=== PATIENT | female | born 1955 | race Caucasian/White ===

== ENCOUNTER 2021-11-19 05:58 | Observation (INO) ==
--- NOTE | 2021-11-13 09:38 | Anesthesiology Consultation ---
Date of Service November 13, 2021 Assessment & Plan (1) Encounter for pre-operative examination: Chart Review Chart Review: Acceptable Risk for Surgery (pending preop Covid testing results and DOS labs ) and Patient NOT seen in Pre Admission Testing -Will need updated labs- will order CBC with diff and PRP stat AM of surgery Per nursing assessment 11/12/2021, patient denies any recent travel. No known Covid infection in the past 90 days. Patient is fully vaccinated for Covid. No known Covid positive exposures or Covid related symptoms. Preop Covid testing scheduled 11/17/2021 = will await results. Pt seen by PCP 10/08/21= patient seen for preop exam for cervical surgery. Labs reviewed. Cleared for cervical spine surgery by Dr. Manning as long as EKG is within normal limits. Mild to moderate risk for surgery. (Preop EKG showed no issues) History Surgery Operation Date: 11/19/21 09:20 Proposed Procedures p C6-C7 Anterior Cervical Discectomy and Fusion - Gabriel Manning, Height/Weight Height: 5 ft Weight: 70.76 kg Allergies Allergy/AdvReac Type Severity Reaction Status Date / Time No Known Allergies Allergy Verified 11/12/21 15:01 Medications Home Medications Medication Instructions Recorded Confirmed Last Taken Cholesterol Medication 1 dose PO HS 11/12/21 11/12/21 Unknown acetaminophen 325 mg tablet 325 mg PO QID PRN 11/12/21 11/12/21 Unknown (Tylenol) cholecalciferol (vitamin D3) 25 25 mcg PO QAM 11/12/21 11/12/21 Unknown mcg (1,000 unit) capsule (Vitamin D3) cyanocobalamin (vitamin B-12) 1 tab PO QAM 11/12/21 11/12/21 Unknown gabapentin 100 mg capsule 100 mg PO HS PRN 11/12/21 11/12/21 Unknown Past Medical History Medical History (Updated 11/13/21 @ 09:58 by Kiara Mcgee PA-C) Cardiac murmur No previous echo No murmur noted on PCP exam 10/08/21 Cervical disc herniation HLD (hyperlipidemia) Past Family History Family History Other No family history of adverse response to anesthesia Past Surgical History Surgical History History of appendectomy History of colonoscopy History of shoulder surgery Rt History of wisdom tooth extraction STOP BANG Total 1 Social History Smoking Status: Never smoker Do You Dip or Chew Tobacco: No Hx Alcohol Use: Yes alcohol intake frequency: holidays/special occasions only Hx Substance Use: No substance use type: does not use Testing Laboratory Results Preop labs 09/14/21 (will be >60 days old)= WBC: 7/74 H/H: 13.0/39.7 PLATELETS: 219 SODIUM: 139 POTASSIUM: 4.3 CHLORIDE: 106 CO2: 28 BUN: 19 CREATININE: 0.77 GLUCOSE: 88 PT: 9.7 PTT: 24.1 INR: 1.0 UA: Negative URINE CULTURE: Group B Beta Strep, Gamma strep not enterococcus Electrocardiogram Date: 09/14/21 Findings: + NSR @ (73bpm ) Normal EKG per cardio. Chest X-Ray Date: 09/14/21 Findings: + NAD
[2021-11-19] MEDS ORDERED: ceFAZolin 1000MG 1,000 MG/7.5 ML SYR IV SCH (06:00)
[2021-11-19] MEDS ORDERED: GABAPENTIN 300 MG CAP PO SCH (06:00)
[2021-11-19] MEDS ORDERED: CeleBREX 200 MG CAP PO SCH (06:00)
[2021-11-19] MEDS ORDERED: LR 15ML/HR IV SCH (06:00)
[2021-11-19] MEDS ORDERED: ACETAMINOPHEN 500 MG TAB PO SCH (06:00)
[2021-11-19] MEDS ORDERED: EPINEPHrine INJ 1 MG/ML AMP ONE (06:59)
[2021-11-19] MEDS ORDERED: BUPIVACAINE 0.5 % 5 MG/1 ML MPF 30ML VIAL ONE (06:59)
[2021-11-19] MEDS ORDERED: ceFAZolin 330 MG/ML 1 GM VIAL ONE (07:00)
[2021-11-19] MEDS ORDERED: PROPOFOL IV EMULSION 10 MG/ML 20 ML VIAL IV ONE (07:03)
[2021-11-19] MEDS ORDERED: ONDANSETRON INJ 2 MG/ML 2 ML VIAL ONE (07:03)
[2021-11-19] MEDS ORDERED: NEOSTIGMINE METHYLSULFATE 1 MG/ML 10ML VIAL ONE (07:03)
[2021-11-19] MEDS ORDERED: LIDOCAINE 2% 2 ML VIAL/AMP(20MG/ML) INFIL ONE (07:03)
[2021-11-19] MEDS ORDERED: DEXAMETHASONE SOD INJ 4 MG/ML VIAL ONE (07:03)
[2021-11-19] MEDS ORDERED: GLYCOPYRROLATE 0.2 MG/ML VIAL ONE (07:03)
[2021-11-19] MEDS ORDERED: fentaNYL citrate 100 MCG/2 ML VIAL ONE (07:04)
[2021-11-19] MEDS ORDERED: MIDAZOLAM HCL 1 MG/ML 2ML VIAL ONE (07:04)
[2021-11-19] MEDS ORDERED: SUGAMMADEX SODIUM 200 MG/2 ML VIAL IV ONE (07:07)
[2021-11-19] MEDS ORDERED: ePHEDrine sulfate 50 MG/ML AMP IV PRN (07:20)
[2021-11-19] MEDS ORDERED: ONDANSETRON INJ 2 MG/ML 2 ML VIAL IV PRN ×2 (07:20→12:59)
[2021-11-19] MEDS ORDERED: ATROPINE SULFATE 0.1 MG/ML 10ML SYR IV PRN (07:20)
[2021-11-19] MEDS ORDERED: fentaNYL citrate 100 MCG/2 ML VIAL IV PRN (07:20)
[2021-11-19 07:24] LABS: Basophils # (auto) 0.02 K/uL (0-0.2); Basophils % (auto) 0.3 %; Eosinophils # (auto) 0.09 K/uL (0-0.5); Eosinophils % (auto) 1.5 %; Hematocrit (blood only) 38.4 % (37-47); Hemoglobin 12.6 g/dL (12.0-16.0); Immature Granulocytes # (auto) 0.01 K/uL (0.00-0.02); Immature Granulocytes % (auto) 0.2 %; Lymphocytes # (auto) 1.83 K/uL (1.2-3.4); Lymphocytes % (auto) 31.2 %; Mean Corpuscular Hemoglobin 31.4 pg (25-34); Mean Corpuscular Volume 95.8 fL (80-100); Mean Platelet Volume 10.5 fL (7.4-10.4); Monocytes # (auto) 0.64 K/uL (0.11-0.59); Monocytes % (auto) 10.9 %; Neutrophils # (auto) 3.27 K/uL (1.4-6.5); Neutrophils % (auto) 55.9 %; Platelet Count 218 K/uL (130-400); RDW Coefficient of Variation 12.5 % (11.5-14.5); RDW Standard Deviation 43.5 fL (36.4-46.3); Red Blood Count 4.01 M/uL (4.2-5.4); White Blood Count 5.86 K/uL (4.8-10.8)
[2021-11-19 07:28] LABS: Mean Corpuscular Hgb Conc 32.8 g/dL (32-36)
--- NOTE | 2021-11-19 07:38 | History & Physical Bridge Note ---
Date of Service November 19, 2021 History & Physical Bridge Note I have examined the patient, reviewed the History & Physical and in the interval since the performance of the History & Physical I have noted the following changes of clinical significance: no changes noted
--- NOTE | 2021-11-19 07:39 | History & Physical Report ---
Date of Service November 19, 2021 Assessment & Plan (1) Herniation of cervical intervertebral disc with radiculopathy: Plan: C6-C7 anterior cervical discectomy and fusion History of Present Illness Chief Complaint: Neck and arm pain Primary Care Provider: NENA Aguilar This is a 65-year-old female presents with chronic persistent neck and arm pain. Failing course of nonoperative care she is here for surgical invention. Allergies Allergy/AdvReac Type Severity Reaction Status Date / Time No Known Allergies Allergy Verified 11/19/21 06:22 Home Medications Medication Instructions Recorded Confirmed Type Cholesterol Medication 1 dose PO HS 11/12/21 11/19/21 History acetaminophen 325 mg tablet 325 mg PO QID PRN 11/12/21 11/19/21 History (Tylenol) cholecalciferol (vitamin D3) 25 25 mcg PO QAM 11/12/21 11/19/21 History mcg (1,000 unit) capsule (Vitamin D3) cyanocobalamin (vitamin B-12) 1 tab PO QAM 11/12/21 11/19/21 History gabapentin 100 mg capsule 100 mg PO HS PRN 11/12/21 11/19/21 History Past Med/Surg History Medical History (Updated 11/19/21 @ 07:39 by Gabriel Manning DO) Cardiac murmur No previous echo No murmur noted on PCP exam 10/08/21 Cervical disc herniation HLD (hyperlipidemia) Surgical History History of appendectomy History of colonoscopy History of shoulder surgery Rt History of wisdom tooth extraction Family History Other No family history of adverse response to anesthesia Social History Smoking Status: Never smoker Second Hand Exposure: No; Do You Dip or Chew Tobacco: No; Hx Alcohol Use: Yes Hx Substance Use: No Preferred Language: Dutch Communication Ability: Effective Systems Architect Required: No Beliefs That Will Affect Care: None Current Living Situation: Spouse Feels Safe at Home: Yes Safety Concerns: Feels Safe At This Time Assistive Devices: Denture - Upper and Glasses Assistive Devices Comment: upper partial Physical Exam Physical Exam: Patient is alert and oriented Heart regular in rhythm Lungs clear Results & Data ([facility]) Vital Signs (Past 12 Hours) Vital Signs Temp Pulse Resp BP Pulse Ox 11/19/21 06:48 36.7 C 89 18 168/88 H 98
[2021-11-19 07:52] LABS: BUN Creatinine Ratio 26.3 (10-20); Calcium 9.5 mg/dl (8.5-10.1); Creatinine Clr Calc Pharmacy 66.2 ml/min; Est GFR (African American) 94.7 ml/min; Est GFR (Non-African American) 81.7 ml/min; Potassium 4.5 mmol/L (3.5-5.1)
[2021-11-19] MEDS ORDERED: HYDROmorphone INJ 2 MG/ML SYR/VIAL ONE (08:07)
[2021-11-19] MEDS ORDERED: FLOSEAL HEMOSTATIC MATRIX 10ML TOP ONE (08:34)
[2021-11-19] MEDS ORDERED: ROCURONIUM BROMIDE 10 MG/ML 5 ML VIAL IV ONE (08:45)
--- NOTE | 2021-11-19 08:57 | Operative Report ---
Post Operative Report Pre & Post Diagnosis Operation Date: 11/19/21 07:45 Pre-Op Diagnosis: Spinal Stenosis, Cervical Region C6-C7 Post-Op Diagnosis: Spinal Stenosis, Cervical Region C6-C7 I identified the patient and participated in the time-out.: Yes Procedure Operation Date: 11/19/21 07:45 Actual Procedures #1 anterior cervical discectomy with bilateral foraminotomies C6-C7. #2 anterior cervical arthrodesis C6-C7. #3 placement of 8 mm spiral cage filled with I factor C6-C7. #4 application of arcos plate and screws across C6-C7. Surgeon Gabriel Manning, Software Quality Manager Tomasa Agosto Estimated Blood Loss 20 Findings Consistent with Post-Op Diagnosis Specimens None Indications This is a 65-year-old female who presents above-mentioned diagnosis after failing course of nonoperative care she is here for the above-mentioned procedure. Description of Procedure Patient met with identified informed consent obtained. Patient was then taken to the operative suite underwent ablation placed in the supine position injectable head Jacques head kiln operator. All bony prominences well-padded eyes inspected to ensure no external pressure placed upon the. This point the anterior cervical spine was prepped and draped in normal sterile fashion. With the assistance of fluoroscopy identified the C6-C7 disc base and a transverse incision was placed overlying this region. Blunt dissection with the assistance of bipolar electrocautery was performed down to and exposing the anterior c ervical spine at C6-C7. Self-retaining retractors placed. Complete discectomy of C6-7 is then performed out to the uncovertebral's bilaterally. [place] distracting pins utilized to assist in visualization. Removed all posterior annular fibers longitudinal ligament bilateral foraminotomies performed. Endplates were then burred to subcortical bleeding bone and a 8 mm spiral cage filled with I factor tapped in position. Distracting apparatus was removed and a 5 complete screws applied with the assistance of fluoroscopy. The incision was then copiously irrigated explored to ensure no damage to surrounding structures remaining bleeding. 10 round ANGÉLICA drain inserted. The incision was then closed with 2 Vicryl in a fashion of 4 Monocryl for final skin closure. Steri-Strip sterile dressings placed. Patient will continue to PACU stable condition. Please note Tomasa Agosto was present at the entire procedure involved the patient positioning complex portions of the surgery and final skin closure. Lastly spinal cord monitoring was utilized at the procedure no changes noted. I attest to the content of the Intraoperative Record and any orders documented therein. Any exceptions are noted below.
--- NOTE | 2021-11-19 09:21 | Fluoroscopy Report ---
FL cervical 2-3V CLINICAL HISTORY: C6-7 ACDF COMPARISON STUDY: None. FLUOROSCOPY TIME: 13.6 seconds. FLUOROSCOPIC IMAGES: 3 FINDINGS: Fluoroscopy was provided during C6-C7 anterior cervical discectomy and fusion. Hardware svetlana ears intact. Surgical drain is noted. Endotracheal tube is partially imaged. IMPRESSION: Fluoroscopy provided during C6-C7 anterior discectomy and fusion. ACT 112: Negative or not required by law. Electronically signed by: Joe Rebolledo M.D. 11/19/2021 9:20 AM
--- NOTE | 2021-11-19 10:12 | Anesthesiology Progress Note ---
Date of Service November 19, 2021 Anesthesia Post Procedure Vital Signs Vital Signs: Temp Pulse Pulse Resp BP Pulse Ox 11/19/21 10:00 70 14 146/94 H 98 11/19/21 09:50 72 11 L 143/94 H 96 11/19/21 09:40 77 15 136/83 97 11/19/21 09:30 70 9 L 141/82 H 98 11/19/21 09:20 76 8 L 136/77 98 11/19/21 09:11 97.0 F L 86 12 156/99 H 96 11/19/21 06:48 98.1 F 89 18 168/88 H 98 Transfer of Care Handoff Completed per policy Notes Mental Status: alert / awake / arousable and participated in evaluation Patient Amnestic to Procedure: Yes Nausea / Vomiting: adequately controlled Pain: adequately controlled Airway Patency, RR, SpO2: stable & adequate BP & HR: stable & adequate Hydration State: stable & adequate Anesthetic Complications: no major complications apparent and Pt Satisfied with anesthetic care
[2021-11-19] MEDS: SODIUM CHLORIDE 0.9% 1000ML 1,000 ML IV SCH ×2 (12:50→21:43)
[2021-11-19] MEDS ORDERED: FAMOTIDINE 20 MG TAB PO PRN (12:59)
[2021-11-19] MEDS ORDERED: HYDROmorphone INJ 1 MG/ML SYRINGE IV PRN (12:59)
[2021-11-19] MEDS ORDERED: dexAMETHasone 8 MG in SYRINGE 0 ML IV PRN (12:59)
[2021-11-19] MEDS ORDERED: hydrOXYzine HCl 25 MG TAB PO PRN (12:59)
[2021-11-19] MEDS ORDERED: GABAPENTIN 100 MG CAP PO PRN (12:59)
[2021-11-19] MEDS ORDERED: SOD PHOSPHATE/SOD BIPHOSPHATE ENEMA 132 ML BTL PR PRN (12:59)
[2021-11-19] MEDS ORDERED: NALOXONE HCL 0.4 MG/1 ML VIAL/CARP IV PRN (12:59)
[2021-11-19] MEDS ORDERED: HYDROmorphone INJ 0.5 MG/0.5 ML SYR IV PRN (12:59)
[2021-11-19] MEDS ORDERED: LORazepam 2 MG/1 ML VIAL IV PRN (12:59)
[2021-11-19] MEDS ORDERED: ALUMINUM/MAGNESIUM SUSP 30 ML UDC PO PRN (12:59)
[2021-11-19] MEDS ORDERED: DO NOT ADMINISTER FLU VACCINE PRN (12:59)
[2021-11-19] MEDS ORDERED: DO NOT ADMINISTER PNEUMOCOCCAL VACCINE PRN (12:59)
[2021-11-19] MEDS ORDERED: ONDANSETRON 4 MG OD TAB PO PRN (12:59)
[2021-11-19] MEDS ORDERED: oxyCODONE HCL IR 5 MG TAB (IMMEDIATE RELEASE) PO PRN (12:59)
[2021-11-19] MEDS ORDERED: METOCLOPRAMIDE HCL INJ 5 MG/ML 2 ML VIAL IV PRN (12:59)
[2021-11-19] MEDS ORDERED: MAGNESIUM HYDROXIDE SUSP 30 ML UDC PO PRN (12:59)
[2021-11-19] MEDS ORDERED: LORazepam 0.5 MG TAB PO PRN (12:59)
[2021-11-19] MEDS ORDERED: bisacodyL 10 MG SUPP PR PRN (12:59)
[2021-11-19] MEDS ORDERED: PROMETHAZINE HCL 12.5 MG in SODIUM CHLORIDE 0.9% 50 ML IV PRN (12:59)
[2021-11-19] MEDS ORDERED: RACEPINEPHRINE 2.25% NEBU SOLN 0.5 ML VIAL INH PRN (12:59)
[2021-11-19] MEDS ORDERED: ACETAMINOPHEN 1,000 MG/100 ML VIAL IV PRN (12:59)
[2021-11-19] MEDS ORDERED: diphenhydrAMINE Capsule 25 MG CAP PO PRN (12:59)
[2021-11-19] MEDS: ACETAMINOPHEN 500 MG TAB PO PRN ×2 (14:43→23:33)
[2021-11-19] MEDS: CHOLECALCIFEROL 1,000 UNITS 25 MCG TAB PO SCH (15:56)
[2021-11-19] MEDS: ceFAZolin 2000MG 2,000 MG/15 ML SYR IV SCH ×2 (15:56→23:33)
[2021-11-19] MEDS ORDERED: DOCUSATE SODIUM/SENNA 50/8.6MG TAB PO SCH (21:00)
[2021-11-19] MEDS: traMADol HCL 50 MG TABLET PO PRN (21:00)
[2021-11-20] MEDS: POLYETHYLENE (MIRALAX) 17 GM PACK PO SCH ×2 (05:36→11:46)
[2021-11-20] MEDS: CHOLECALCIFEROL 1,000 UNITS 25 MCG TAB PO SCH (07:55)
[2021-11-20] MEDS: traMADol HCL 50 MG TABLET PO PRN (07:55)
[2021-11-20] MEDS ORDERED: dexAMETHasone 6 MG in SYRINGE 0 ML IV SCH (09:00)
[2021-11-20] MEDS ORDERED: CYANOCOBALAMIN (B-12) 500 MCG TABLET PO SCH (09:00)
--- NOTE | 2021-11-20 09:04 | Discharge Summary ---
Date of Service November 20, 2021 Admission HPI Per Admitting Provider This is a 65-year-old female presents with chronic persistent neck and arm pain. Failing course of nonoperative care she is here for surgical invention. Principal Diagnosis Cervical disc condition with radiculopathy Discharge Data Allergies Allergy/AdvReac Type Severity Reaction Status Date / Time No Known Allergies Allergy Verified 11/19/21 06:22 Procedures Performed Operation Date: 11/19/21 07:45 Actual Procedures p C6-C7 Anterior Cervical Discectomy and Fusion, Spinal Cord Monitoring(Not Applicable) - Gabriel Manning DO Ordered Studies 11/19/21 07:45 [place] cervical 2-3V Routine Hospital Course (1) Herniation of cervical intervertebral disc with radiculopathy: Patient underwent anterior cervical discectomy and fusion tolerated as well as taken to orthopedic for possibly. Postop day 1 she was swallowing well no hoarseness. Excellent strength testing. ANGÉLICA drain decreasing probably. Subsequent discharge home. Discharge orders instructions found in chart for further review. Total Time Total Time Spent Total Time Spent (In Minutes): 20 minutes Discharge Plan Discharge Items Patient Disposition: Home - Self-Care Reason For Visit: Spinal Stenosis, Cervical Region Discharge Diagnosis: Cervical spinal stenosis with radiculopathy Activity: As commented below Non-emergency contact: Primary Care Provider Call non-emergency contact if: you have any medication questions Follow-up/Referrals: Breann Rosenbaum CRNP [Primary Care Provider] - Diet: Regular Addtl Attending Provider Instructions: ACTIVITY RECOMMENDATIONS: SELF CARE INSTRUCTIONS AFTER CERVICAL FUSIONS 1. No smoking. Smoking drastically decreases the chance of a solid fusion. 2. No bending, lifting more than 5 pounds, or twisting (roll like a log when turning in bed). 3. You may shower 3 days after surgery. Thoroughly dry wound. Do not soak in the tub. 4. Cervical collar: Must be worn at all times including sleeping. You may remove the brace only to bath, eat and if you are sitting in a recliner. 5. Please walk as much as you can for exercise. Gradually increase the distance that you walk as your endurance increases. SPECIAL CARE INSTRUCTIONS: VERY IMPORTANT TO READ AND REVIEW A. Do not take any anti-inflammatory medications (i.e. Indocin, Advil, Aspirin, Naprosyn, Aleve, Motrin, etc.) as these may inhibit the chance of a solid fusion. Tylenol is okay to take. B. Your surgical incision has been closed with a cosmetic suture under the skin that will dissolve in about 6 weeks. In 14 days, you can use a pair of clean scissors and cut the suture that is left outside of the skin at the ends of your incision. C. Complications are uncommon, but please contact us if you have any signs or symptoms of: 1. wound infection (fever higher than 102.5 degrees F, redness, separation of wound, drainage, or increasing pain from the incision) 2. blood clots in legs (pain, swelling, redness and warmth in legs) 3. urinary tract infection (fever higher than 102.5 degrees, burning upon urination or increased frequency of urination) 4. nerve problems (inability to walk on your toes or heels, numbness, loss of bowel or bladder control) 5. any other symptoms that concern you. D. Please call the office at if you have any concerns or questions about your operation or recovery. MANAGING PAIN AFTER SPINAL SURGERY 1. Narcotic medication is intended for short-term use and will be provided for surgical pain. Surgical pain usually lasts for a period of 4-6 weeks. Narcotic medication includes Percocet, Vicodin, Darvocet, Tylenol #3 or Lortab. 2. Longer-term pain is more appropriately treated with non-narcotic medication such as Tylenol ES. 3. Muscle spasm is not appropriately treated with narcotics. Muscle relaxers such as Soma, Flexeril or Skelaxin can be used along with Tylenol ES. 4. Remember that we all live with some "aches and pains". This is not unusual or uncommon after an injury or as we get older. 5. We will provide appropriate medication within the normal guidelines of their prescribed use. We will also be very cautious and aware of potential abuse and extended duration of patients' medication needs. 6. Please allow 2-3 days to process refills. Prescriptions will not be mailed but must be picked up at the office. FOLLOW UP VISIT: Keep your scheduled follow-up appointment. Any questions, please call the office at . Pending Studies at Discharge: No Stand-Alone Forms: Kofax, Smoking Cessation Medications and MA Order Prescriptions: New tramadol 50 mg tablet 50 mg PO Q6H PRN (Reason: pain, moderate) Qty: 20 RF: 0 oxycodone 5 mg tablet 5 mg PO Q6H PRN (Reason: pain, severe) Qty: 20 RF: 0 Continued acetaminophen [Tylenol] 325 mg Tablet 325 mg PO QID PRN (Reason: Pain) RF: 0 gabapentin 100 mg Capsule 100 mg PO HS PRN (Reason: Pain) RF: 0 cholecalciferol (vitamin D3) [Vitamin D3] 25 mcg (1,000 unit) Capsule 25 mcg PO QAM RF: 0 cyanocobalamin (vitamin B-12) Tablet,Chewable 1 tab PO QAM RF: 0 Cholesterol Medication 1 dose PO HS RF: 0 Discharge Orders: Discharge Order (Routine); Ordered 11/20/21 Ordered By: Gabriel Manning Admission Data Admit Date/Time: 11/19/21 09:00 Attending Provider: Gabriel Manning Admit Provider: Gabriel Manning Primary Care Provider: Breann Rosenbaum
== END 2021-11-20 13:23 | disposition home or self-care (01) ==
LOC: ASU 05:58 → PACUINP 09:00 → INTOOBSV 09:00 → 3E 12:40